=== PATIENT | male | born 1980 | race African-American/Black ===

== ENCOUNTER 2018-10-24 09:00 | Emergency (ER) | payer SELFPAY ==
[~2018-10-24] VITALS: Ht 170.2 cm; Wt 79.4 kg
[2018-10-24] MEDS ORDERED: ALBUTEROL2.5 MG/3 M INH (09:08)
--- NOTE | 2018-10-24 09:16 | NUR ---
ED Nurse Note: PT WALKED IN TO ER TODAY FROM HOME. AOX4. PT C/O NONRADIATING MEDIAL CHEST PAIN, 6/10 AND SOB X LAST NIGHT. PT STATES PAIN IS EXACERBATED BY COUGH. PT STATES HE HAS HX OF ASTHMA BUT RAN OUT OF HIS INHALER. PT ABLE TO SPEAK IN FULL SENTENCES. NO SIGNS OF RESPIRATORY DISTRESS, RETRACTIONS, OR ACCESSORY MUSLCE USE NOTED. RR16, O2SAT 100% ON RA.
[2018-10-24 09:18] VITALS: BP 159/88
--- NOTE | 2018-10-24 09:19 | NUR ---
ED Nurse Note: ON ASSESSMENT, ABRASIONS NOTED TO LEFT UPPER ARM. PT STATES HE WAS BITTEN BY A DOG 2 DAYS AGO. PT AFEBRILE AND NO SIGNS OF INFECTION. PT STATES HE DOES NOT RECALL IF TDAP IS UP TO DATE. DR ISABEL NOTIFIED. BITE WOUND IRRIGATED AND BACITRACIN APPLIED PER DR ISABEL.
--- NOTE | 2018-10-24 09:22 | NUR ---
ED Nurse Note: RT CALLED FOR BREATHING TX.
[2018-10-24] MEDS ORDERED: Tetanus/Diptheria/Pertussis IM ONE ×2 (09:23→09:30)
[2018-10-24] MEDS ORDERED: Bacitracin Oint UD TOPIC ONE ×2 (09:23→09:30)
--- NOTE | 2018-10-24 09:29 | NUR ---
ED Nurse Note: XRAY AT BEDSIDE.
[2018-10-24] MEDS ORDERED: Augmentin 875mg Tab ORAL ONE (09:30)
--- NOTE | 2018-10-24 09:39 | NUR ---
ED Nurse Note: RT AT BESIDE.
[2018-10-24] MEDS: Ipratropium 0.02% Inh Soln 2.5ml UD HHN SCH ×2 (09:40→09:52)
[2018-10-24] MEDS: Albuterol ud Inhalation HHN SCH ×2 (09:40→09:52)
[2018-10-24] MEDS ORDERED: PREDNISONE20 MG ORAL (10:36)
[2018-10-24] MEDS ORDERED: ALBUTEROL SULF8.5 GM INH (10:36)
--- NOTE | 2018-10-24 10:42 | NUR ---
ED Nurse Note: PT LAYING PEACEFULLY IN BED IN NAD. AOX4. PRESCRIPTIONS AND DISCHARGE PAPERWORK EXPLAINED TO PT. PT VERBALIZES UNDERSTANDING AND ALL QUESTIONS ANSWERED. PRESCRIPTIONS AND DISCHARGE PAPERWORK GIVEN TO PT AND ID WRISTBAND REMOVED. PT WALKED OUT OF ER WITH STEADY GAIT AND ALL BELONGINGS.
[2018-10-24 10:43] VITALS: BP 148/82
--- NOTE | 2018-10-24 11:37 | Emergency Room Report ---
History of Present Illness General Chief Complaint: Chest Pain Source: Patient Present Illness HPI 38-year-old male presents ED for evaluation. Patient walked in complaining of chest tightness shortness of breath since last night. Notes history of asthma. States it is hard to take a deep breath. Denies cough. Denies chest pain. Denies alcohol or drug use. Denies smoking. Denies any cardiac history. Denies sick contacts or recent travel. No other aggravating relieving factors. Denies any other associated symptoms Allergies: Coded Allergies: No Known Allergies (Unverified , 10/24/18) Patient History Past Medical History: asthma Past Surgical History: none Pertinent Family History: none Social History: Denies: smoking, alcohol use, drug use Immunizations: UTD Reviewed Nursing Documentation: PMH: Agreed; PSxH: Agreed Nursing Documentation-PMH Past Medical History: No History, Except For Hx Asthma: Yes Review of Systems All Other Systems: negative except mentioned in HPI Physical Exam Vital Signs Date Time Temp Pulse Resp B/P (MAP) Pulse Ox O2 Delivery O2 Flow Rate FiO2 10/24/18 09:04 98.2 93 18 157/88 (111) 96 Room Air 10/24/18 09:30 21 Sp02 EP Interpretation: reviewed, normal General Appearance: no apparent distress, alert, GCS 15, non-toxic Head: normocephalic Eyes: bilateral eye normal inspection, bilateral eye PERRL ENT: hearing grossly normal, normal pharynx, no angioedema, normal voice Neck: full range of motion, supple/symm/no masses Respiratory: decreased breath sounds, wheezing Cardiovascular #1: regular rate, rhythm, no edema Gastrointestinal: normal inspection Rectal: deferred Genitourinary: no CVA tenderness Musculoskeletal: normal inspection Neurologic: alert, oriented x3, responsive, motor strength/tone normal, sensory intact, speech normal Psychiatric: normal inspection Skin: normal color Lymphatic: normal inspection Medical Decision Making Diagnostic Impression: Primary Impression: Asthma exacerbation Qualified Codes: J45.901 - Unspecified asthma with (acute) exacerbation ER Course Hospital Course 38-year-old male presents to ED complaining of chest tightness, wheezing Differential diagnoses include: URI, bronchitis, asthma/COPD, pneumonia Clinical course Patient placed on stretcher. After initial history, physical exam reveals an elderly male in no acute distress. Bilateral TM unremarkable. No pharyngeal erythema. No tonsillar exudates. No lymphadenopathy. reduced breath sounds bilaterally. Mild wheezing. I ordered nebs, prednisone, chest x-ray, EKG Chest x-rayno acute process, no focal consolidation, no pneumothorax EKGnormal sinus rhythm no acute ischemic changes interpreted by me Reassessment symptoms improved. Patient feels better. Improved breath sounds bilaterally. Safe for discharge with close outpatient follow-up. Will provide prescriptions. Does not have a PMD. Will provide referrals Diagnosis - asthma exacerbation Stable and discharged home with prescriptions for prednisone, albuterol inhaler. Instructed to followup with PMD. Return to ED if symptoms recur or worsen EKG Diagnostic Results Rate: normal Rhythm: NSR ST Segments: no acute changes ASA given to the pt in ED: No Rhythm Strip Diag. Results EP Interpretation: yes Rhythm: NSR, no PVC's, no ectopy Chest X-Ray Diagnostic Results Chest X-Ray Diagnostic Results : Chest X-Ray Ordered: Yes # of Views/Limited/Complete: 1 View Indication: Shortness of Breath EP Interpretation: Yes Interpretation: no consolidation, no effusion, no pneumothorax, no acute cardiopulmonary disease Impression: No acute disease Electronically Signed by: Electronically signed by Shantanu Hall MD Last Vital Signs Date Time Temp Pulse Resp B/P (MAP) Pulse Ox O2 Delivery O2 Flow Rate FiO2 10/24/18 10:43 98.3 92 18 148/82 100 Room Air 21 Status: improved Disposition: HOME, SELF-CARE Condition: Stable Scripts Prednisone* (PREDNISONE*) 20 Mg Tablet 40 MG ORAL DAILY, #10 TAB Prov: Shantanu Hall MD 10/24/18 Albuterol Sulfate* (ALBUTEROL SULFATE MDI*) 8.5 Gm Hfa.aer.ad 2 PUFF INH Q6H, #1 EA 0 Refills Prov: Shantanu Hall MD 10/24/18 Referrals: NOT CHOSEN IPA/,REFERRING (PCP) Dulce [facility] Patient Instructions: Asthma, Adult, [id number] Shantanu Hall MD Oct 24, 2018 11:37
--- NOTE | 2018-10-24 12:36 | Diagnostic Imaging Report ---
Indication: Chest pain Comparison: 03/15/2011 A single view chest radiograph was obtained. Findings: Cardiomediastinal appearance is within normal limits for age. The lungs are clear. Pulmonary vascularity is appropriate. The diaphragmatic contour is smooth and costophrenic angles are sharp. No pleural effusions are identified. The bones are unremarkable. Impression: No acute findings
== END 2018-10-24 10:49 | disposition home or self-care (01) ==
LOC: EMR 09:30
DX: J45.901 Unspecified asthma with (acute) exacerbation (principal)
CPT/HCPCS: 71045; 90471; 90715; 93005; 94640; 94664; 99283; J7512